=== PATIENT | male | born 1970 | race Caucasian/White ===

== ENCOUNTER 2016-12-23 22:48 | Emergency (ER) | payer BC ==
[~2016-12-23] VITALS: Ht 175.3 cm; Wt 127.0 kg
[2016-12-24 00:30] VITALS: BP 122/86
== END 2016-12-24 01:18 | disposition home or self-care (01) ==
LOC: ER 22:49
DX: M79.605 Pain in left leg (principal); M79.1 Myalgia
CPT/HCPCS: 93971